=== PATIENT | female | born 1970 ===

== ENCOUNTER 2024-09-04 06:22 | Day surgery (SDC) | payer BC, SELFPAY | END 2024-09-04 13:49 | disposition home or self-care (01) | LOC: GI 06:22 | PROVIDERS: ATTENDING PHYSICIAN Internal Medicine Gastroenterology | DX: Z12.11 Encounter for screening for malignant neoplasm of colon (principal); K62.1 Rectal polyp; K63.5 Polyp of colon; Z83.719 Family history of colon polyps, unspecified | CPT/HCPCS: 45380; 88305 ==